=== PATIENT | female | born 1995 | race Caucasian/White ===

== ENCOUNTER 2023-06-06 14:30 | Inpatient (IN) | payer OTHER ==
[2023-06-06] MEDS ORDERED: DINOPROSTONE 10 MG VAGINAL SUPPOSITORY VG ONE (15:41)
[2023-06-06] MEDS: DEXTROSE 5%-LACTATED RINGERS 1,000 ML IV SCH ×2 (15:46→21:06)
[2023-06-06 15:54] VITALS: BMI 39.9
[2023-06-06 15:55] LABS: BASO % 0.3 % (0-2.0); EOS % 0.3 % (0-4.5); HEMATOCRIT 36.2 % (32.4-45.2); LYMPH % 15.6 % (8-40); MCH 26.4 pg (25.7-33.7); MCHC 33.3 g/dl (32.0-36.0); MEAN CELL VOLUME 79.2 fl (80-96); MEAN PLT VOLUME 10.3 fl (7.5-11.1); MONO % 5.8 % (3.8-10.2); PLATELET COUNT 226 10^3/uL (134-434); RBC 4.57 M/mm3 (3.60-5.2); RDW 15.5 % (11.6-15.6); WHITE BLOOD COUNT 9.4 K/mm3 (4.0-10.0)
[2023-06-06 16:13] LABS: POTASSIUM 4.1 mmol/L (3.5-5.1)
[2023-06-06 16:14] LABS: CALCIUM 9.2 mg/dL (8.5-10.1)
[2023-06-06 16:15] LABS: BLOOD UREA NITROGEN 11.8 mg/dL (7-18)
[2023-06-06 16:18] LABS: CREATININE 0.6 mg/dL (0.55-1.3)
[2023-06-06 16:21] LABS: INR 1.06 (0.83-1.09); PROTHROMBIN TIME (PATIENT) 12.3 SEC (9.7-13.0)
[2023-06-06 16:24] LABS: ACTIVATED PTT 31.9 SECONDS (25.2-36.5)
[2023-06-07] MEDS ORDERED: OXYTOCIN 30 UNITS in 0.9% NS 30 UNIT/500 ML INFUS.BAG IVPB ONE (09:02)
[2023-06-07] MEDS ORDERED: BUTORPHANOL TARTRATE 1 MG/ML VIAL ONE (09:15)
[2023-06-07] MEDS ORDERED: PROMETHAZINE HCL 25 MG/1 ML VIAL ONE (09:15)
[2023-06-07] MEDS ORDERED: OXYTOCIN 30 UNITS in 0.9% NS 30 UNIT/500 ML INFUS.BAG IVPB SCH (10:00)
[2023-06-07] MEDS ORDERED: BUTORPHANOL TARTRATE 1 MG/ML VIAL IVPB ONE (10:00)
[2023-06-07] MEDS ORDERED: PROMETHAZINE HCL 25 MG/1 ML VIAL IVPB ONE (10:00)
[2023-06-07] MEDS ORDERED: OXYTOCIN 20 UNITS in 0.9% NS 20 UNIT/1,000 ML INFUS.BAG IV ONE (12:07)
[2023-06-07] MEDS ORDERED: BISACODYL 10 MG SUPP.RECT RC PRN (12:31)
[2023-06-07] MEDS ORDERED: BENZOCAINE 20% 57 GM BOTTLE TP PRN (12:31)
[2023-06-07] MEDS ORDERED: BENZOCAINE 28 GM HEMORRHOIDAL OINTMENT TP PRN (12:31)
[2023-06-07] MEDS ORDERED: oxyCODONE HCL 5 MG TABLET PO PRN (12:31)
[2023-06-07] MEDS ORDERED: WITCH HAZEL 50% (TUCKS) 40 PAD/JAR PAD TP PRN (12:31)
[2023-06-07] MEDS ORDERED: ACETAMINOPHEN 325 MG TABLET (FP) PO PRN (12:31)
[2023-06-07] MEDS ORDERED: METHYLERGONOVINE MALEATE 0.2 MG/1 ML AMP IM PRN (12:31)
[2023-06-07] MEDS ORDERED: METHYLERGONOVINE MALEATE 0.2 MG/1 ML AMP IM ONE (12:32)
[2023-06-07] MEDS ORDERED: OXYTOCIN 20 UNITS in 0.9% NS 20 UNIT/1,000 ML INFUS.BAG IV SCH (12:45)
[2023-06-07 13:42] LABS: CORD HCO3 23.2 mmHg (20-29); CORD pH 7.243 (7.14-7.44)
[2023-06-07 13:43] LABS: CORD BASE EXCESS -5.2 mmol/L (0-2); CORD PCO2 43.1 mmHg (30-78); CORD pH 7.305 (7.14-7.44)
[2023-06-07] MEDS: DEXTROSE 5%-LACTATED RINGERS 1,000 ML IV SCH (14:20)
[2023-06-07] MEDS: IBUPROFEN 600 MG TABLET (FP) PO PRN ×2 (14:44→20:42)
[2023-06-07 22:21] VITALS: RESP 17
[2023-06-08 08:23] LABS: BASO % 0.3 % (0-2.0); EOS % 0.9 % (0-4.5); HEMATOCRIT 29.6 % (32.4-45.2); HEMOGLOBIN 9.8 GM/dL (10.7-15.3); LYMPH % 22.9 % (8-40); MCH 26.9 pg (25.7-33.7); MCHC 33.1 g/dl (32.0-36.0); MEAN CELL VOLUME 81.2 fl (80-96); MEAN PLT VOLUME 10.8 fl (7.5-11.1); MONO % 4.7 % (3.8-10.2); NEUT % 71.2 % (42.8-82.8); PLATELET COUNT 176 10^3/uL (134-434); RBC 3.65 M/mm3 (3.60-5.2); RDW 15.5 % (11.6-15.6); WHITE BLOOD COUNT 9.8 K/mm3 (4.0-10.0)
[2023-06-08] MEDS ORDERED: DIPHTH,PERTUSS(ACELL),TET 0.5 ML DISP.SYRIN IM ONE (10:00)
[2023-06-08] MEDS: IBUPROFEN 600 MG TABLET (FP) PO PRN (19:53)
[2023-06-08] MEDS: SENNOSIDES/DOCUSATE COMBO (SENNA PLUS) TABLET (UD) PO PRN (19:53)
[2023-06-09] MEDS: IBUPROFEN 600 MG TABLET (FP) PO PRN ×2 (00:16→13:20)
[2023-06-09] MEDS: SENNOSIDES/DOCUSATE COMBO (SENNA PLUS) TABLET (UD) PO PRN (10:05)
[2023-06-09 11:37] VITALS: BP 118/69; PULSE 75; TEMP 98.3
== END 2023-06-09 14:20 | disposition home or self-care (01) | DRG 560 ==
LOC: JLDR 14:30 → J3W 06-07 14:09
PROVIDERS: ADMIT Obstetrics & Gynecology; ATTEND Obstetrics & Gynecology
PROC: 0HQ9XZZ Repair Perineum Skin, External Approach (ICD-10-PCS; principal; 2023-06-07)
PROC: 10E0XZZ Delivery of Products of Conception, External Approach (ICD-10-PCS; 2023-06-07)
DX: O48.0 Post-term pregnancy (principal); Z3A.40 40 weeks gestation of pregnancy; O70.0 First degree perineal laceration during delivery; Z37.0 Single live birth
CPT/HCPCS: 36415; 36600; 80048; 82803; 85025; 85610; 85730; 86780; 86850; 86900; 86901; 90715